=== PATIENT | female | born 2000 | race Caucasian/White ===

== ENCOUNTER 2024-08-24 16:07 | Emergency (ER) | payer OTHER, BC, SELFPAY ==
[2024-08-24 16:09] VITALS: BP 145/88; PULSE 116; RESP 16; TEMP 37.1; O2SAT 98; BMI 41.5
== END 2024-08-24 18:35 | disposition left against medical advice (07) ==
LOC: ED 18:54
PROVIDERS: PCP Family Medicine
DX: Z53.21 Procedure and treatment not carried out due to patient leaving prior to being seen by health care provider (principal)